=== PATIENT | female | born 1950 | race Caucasian/White ===

== ENCOUNTER 2019-04-04 12:52 | Observation (INO) | payer MEDICARE, OTHER, SELFPAY ==
[2019-04-04] VITALS (7 sets, daily range): BP systolic 133–157; BP diastolic 67–78; PULSE 59–68; RESP 15–18; TEMP 36.8–37.1; O2SAT 65–100; BMI 32.3; BMI 31.0
--- NOTE | 2019-04-04 13:05 | RAD_ITS ---
STUDY: X-RAY CHEST REASON FOR EXAM: Female, 69 years old. Left-sided chest pain. TECHNIQUE: Single AP portable view of the chest. COMPARISON: None. FINDINGS: EKG electrodes are seen. Hyperinflation. The lungs are clear. There is no demonstrated pleural abnormality. Normal size heart. Normal mediastinum and enedina. Normal visualized pulmonary arteries. There is atherosclerotic tortuosity of the aortic arch and descending thoracic aorta. There are diffuse degenerative changes of the visualized thoracic spine. Normal visualized ribs, clavicles, and shoulders. There is no demonstrated abnormality of the visualized soft tissue structures of the upper abdomen. RAD/Chest 1 View (Portable) IMPRESSION: No acute abnormality is seen. Electronically Signed: Ventura Guerrero, at 13:25 EDT , Service support ,
--- NOTE | 2019-04-04 13:05 | EKG12_ITS ---
Test Reason : CP ADMIT Blood Pressure : / mmHG Vent. Rate : 060 BPM Atrial Rate : 060 BPM P-R Int : 158 ms QRS Dur : 082 ms QT Int : 432 ms P-R-T Axes : 045 047 026 degrees QTc Int : 432 ms Normal sinus rhythm Normal ECG Confirmed by MAT MCKEON, CARLOS ([id number]), television news video editor TANO TAVARES ([id number]) on 04/08/2019 10:25:03 AM Referred By: Agueda Ward Confirmed By:CARLOS RIVERO MD
--- NOTE | 2019-04-04 13:05 | ED.DCSUM_ITS ---
History of Present Illness Chief Complaint: Chest Pain Detail of Chief Complaint: Chest pressure with associated symptoms Informant: Patient, Friend Onset: Today - 30 minutes prior to arrival Context: Sudden Onset Timing: Continuous Quality: Pain and pressure Location: Anterior left chest Current Severity: Mild Maximum Severity: Severe Worsened by: Nothing Relieved by: Markedly better after first nitro Associated Symptoms: Nausea, diaphoresis, dyspnea and lightheadedness Narrative: She is a 69-year-old female with history of type 2 diabetes and hypercholesterolemia who presents by ambulance with left anterior pressure sensation with possible radiation associated with nausea, dyspnea, diaphoresis, pallor. She took aspirin prior to paramedics arrival. She was given 1 nitro with marked improvement. She has never had a stress test. There is a strong family history of coronary disease i.e. mother, father and siblings all have had heart attacks. She has never smoked. She denies black or maroon stool. She denies history of hiatal hernia or reflux. She states sometimes it feels like things get stuck. She denies orthopnea or PND. She denies URI symptoms. There is no history of PE or DVT. She is visiting from [facility]. Prior similar symptoms: No Recent Illness/Hospitalization: No - Past Medical History (1) History of type 2 diabetes mellitus Status: Acute (2) History of hypercholesterolemia Status: Acute Past Medical History - Allergies and Home Meds Allergies/Adverse Reactions: Allergies Penicillins [PCN] Allergy (Verified 04/04/19 12:54) Rash Sulfa (Sulfonamide Antibiotics) Allergy (Verified 04/04/19 12:54) Rash Prior records reviewed: No - There are no records for review Surgical History: noncontributory Lives: Alone Smoking Status: Never smoker Alcohol: Occasional Drugs: None Review of Systems General: Denies: Chills, Fever, Sweats Eyes: Reports: Visual changes - bilaterally. Denies: Blurred Vision - bilaterally, Diplopia ENT: Denies: Rhinorrhea, Sore throat Cardiovascular: Reports: Chest pain. Denies: Palpitations Respiratory: Reports: Dyspnea. Denies: Orthopnea, Paroxysmal nocturnal dyspnea Gastrointestinal: Denies: Abdominal pain, Nausea, Vomiting, Diarrhea, Melena, Hematochezia Genitourinary: Denies: Dysuria, Hematuria, Frequency Musculoskeletal: Denies: Myalgias, Arthralgias, Neck pain, Back pain, Swelling, Extremity Pain Skin: Denies: Rash, Wounds Neurological: Denies: Headache, Weakness, Numbness Physical Exam Vital Signs/Narrative: Vital Signs Temp Pulse Resp BP Pulse Ox 04/04/19 12:55 98.7 F 65 17 133/70 H 95 Inital Vital Signs reviewed: Yes General: Well nourished, Well developed, No Acute Distress Head: Normocephalic, Atraumatic Eyes: Perrl, EOMI ENT: Moist mucous membranes, No rhinorrhea Neck: Supple, Nontender Cardiovascular: Regular rate, Regular rhythm, No murmurs Respiratory: No distress, CTA bilaterally, Chest nontender Abdomen: Soft, Nontender, Nondistended, Normal bowel sounds Back: Nontender, Normal Inspection Extremities: Nontender, No edema, - - There is no asymmetry, swelling, discoloration, leg vein distention, palpable cords or tenderness along the distribution of the deep venous system. Skin: Normal color, No rash Neurological: Alert, Oriented x3, Cranial nerves II-XII grossly intact, Normal Strength, Normal Sensation Psychological: Normal affect, Normal Mood Diagnostic/Tx/Re-eval Chest X-Ray - ED: Read by ED Physician, Normal, Heart, Lungs, Mediastinum, Bony Structures, No Acute Disease Impressions Chest X-Ray 04/04/19 13:05 IMPRESSION: No acute abnormality is seen. Electronically Signed: Ventura Guerrero, at 13:25 EDT , Service support , 04/04/19 13:05 Chest 1 View (Portable) [RAD] Stat Laboratory Results 04/04/19 04/04/19 13:40 13:40 WBC 4.7 RBC 4.26 Hgb 13.0 Hct 38.3 MCV 89.9 MCH 30.5 MCHC 33.9 RDW Std Deviation 41.1 RDW Coeff of [place] 12.5 Plt Count 187 MPV 9.3 Immature Gran % (Auto) 0.200 Neut % (Auto) 61.2 Lymph % (Auto) 27.8 [place] % (Auto) 7.0 Eos % (Auto) 3.0 Baso % (Auto) 0.8 Absolute Neuts (auto) 2.9 Absolute Lymphs (auto) 1.31 Nucleated RBC % 0 Sodium 139 Potassium 4.0 Chloride 105 Carbon Dioxide 29.0 Anion Gap 5 BUN 14 Creatinine 0.89 Estim Creat Clear Calc 52.93 Est GFR (MDRD) Af Amer 81 Est GFR (MDRD) Non-Af 67 BUN/Creatinine Ratio 15.8 Glucose 114 H Calcium 9.4 Troponin I < 0.015 Patient's laboratory results and x-ray are unremarkable. Patient's pain has resolved. With strong family history and a heart score of 5 hospitalist has been paged for serial enzymes and provocative testing. - Medical Decision Making With abrupt onset of chest heaviness need to evaluate for cardiac versus noncardiac causes. Since patient has strong family history had significant improvement after one nitro concern this represents cardiac. Will obtain chest x-ray to determine if there are any pulmonary cause of her chest pain. Patient was informed there is significant concern this may represent cardiac cause and that she would require further testing as an inpatient. ED Disposition - Plan for ED Patient: Disposition: Acute Care Hospital [facility] Diagnosis: Chest heaviness
[2019-04-04 13:45] LABS: Absolute Lymphocyte Count 1.31 X10^3/uL (0.83-4.51); Absolute Neutrophil Count 2.9 X10^3/uL (2.0-7.7); Basophil# 0.04 X10^3/uL; Basophil% 0.8 % (0-1); Eosinophil# 0.14 X10^3/uL; Hematocrit 38.3 % (37-47); Lymphocyte # 1.31 X10^3/ul (4.0); Lymphocyte % 27.8 % (19-41); Mean Corp Hgb Conc 33.9 g/dL (32-36); Mean Corpuscular Hgb 30.5 pg (27.0-32.0); Mean Corpuscular Volume 89.9 fL (81-99); Mean Platelet Vol. 9.3 fl (6.2-12.0); Monocyte# 0.33 X10^3/uL; NRBC Flagged by Analyzer 0 % (0-5); Neutrophil # 2.89 X10^3/uL (2.7-7.7); Neutrophil % 61.2 % (47-70); Platelet Count 187 K/mm3 (150-450); RBC Distribution Width CV 12.5 % (11.6-14.6); RBC Distribution Width SD 41.1 fl (35.1-43.9); Red Blood Count 4.26 M/mm3 (4.2-5.4); White Blood Count 4.7 K/mm3 (4.4-11.0)
--- NOTE | 2019-04-04 13:56 | ED.RN ---
pt denies cp or chest pressure. nitro not given.
[2019-04-04 14:03] LABS: Anion Gap 5 (5-15); BUN 14 mg/dL (7-18); BUN/Creat Ratio 15.8 RATIO (10-20); Calcium,Total 9.4 mg/dL (8.5-10.1); Chloride 105 mmol/L (98-107); Creatinine, Serum 0.89 mg/dL (0.55-1.02); EST Glomerular Filtration Rate 67 mL/min (>60); Est Glom Filt Rate - Afr Amer 81 mL/min (>60); Estimated Creatinine Clearance 52.93 ml/min; Glucose 114 mg/dL (74-106); Sodium Level 139 mmol/L (136-145)
--- NOTE | 2019-04-04 16:11 | EKG12_ITS ---
Test Reason : AM EKG Blood Pressure : / mmHG Vent. Rate : 056 BPM Atrial Rate : 056 BPM P-R Int : 162 ms QRS Dur : 084 ms QT Int : 440 ms P-R-T Axes : 055 067 043 degrees QTc Int : 424 ms Sinus bradycardia Otherwise normal ECG Confirmed by MAT MCKEON, CARLOS ([id number]), book editor TANO TAVARES ([id number]) on 04/08/2019 10:24:49 AM Referred By: Agueda Ward Confirmed By:CARLOS RIVERO MD
[2019-04-04 16:31] LABS: Bedside Glucose 105 mg/dL (70-110)
--- NOTE | 2019-04-04 16:35 | PCM.HP.STD ---
<Vargas Nagy - Last Filed: 04/04/19 16:35> Problem List (1) Chest pain Status: Acute (2) Diabetes Status: Chronic Qualifiers: Diabetes mellitus type: type 2 (3) HLD (hyperlipidemia) Status: Chronic History of Present Illness Date of Admission: 04/04/19 Chief Complaint: chest pressure The patient is a 69 year old F with pmhx of DMt2, HTN, HLD, and a strong family hx of coronary dz who presented to the ER with complaints of chest heaviness. This began today at about 1230. She was sitting in a vehicle on the way to lunch when she suddenly had a midsternal and left lower chest heaviness. Associated with this was SOB, lightheadedness, and heavy sweating. She called EMS and was administered nitro which helped her pain. In the ER she had negative troponin, negative CXR, and negative EKG. She continues to have mild midsternal chest heaviness. She has never experienced this before. She has no hx smoking. She occasionally drinks. Her mother had an IN at 62, her father had an IN at 38, and her brother had a 3 vessel CABG at 39. [] Past Medical History Past Medical History (Chronic Problems): Chronic Problems Diabetes (Chronic) HLD (hyperlipidemia) (Chronic) Allergies Penicillins [PCN] Allergy (Verified 04/04/19 12:54) Rash Sulfa (Sulfonamide Antibiotics) Allergy (Verified 04/04/19 12:54) Rash Home Medications: Ambulatory Orders Medication Instructions Recorded Atorvastatin Calcium 40 mg PO QODAY 04/04/19 Metformin HCl 500 mg PO DAILY 04/04/19 Multivitamin [Multivitamins] 1 ea PO DAILY 04/04/19 Surgical History: noncontributory Psychiatric History: No pertinent psych hx LIQU[employer]TIFIER History: No pertinent LIQU[employer]TIF[employer] history Lives: Alone Smoking Status: Never smoker Tobacco Use: Secondhand Alcohol: Occasional Drugs: None - *Family History Maternal History Items: Heart Disease Paternal History Items: Heart Disease Sibling History Items: Heart Disease Review of Systems Constitutional: Denies: Chills, Fever, Weight Change HEENT: Denies: Head Aches, Sinus Congestion, Sinus Drainage Cardiovascular: Denies: Chest Pain, Palpitations Respiratory: Denies: Cough, Shortness of breath at rest, Sputum production Gastrointestinal: Denies: Abdominal Pain, Nausea, Vomiting Genitourinary: Denies: Dysuria Musculoskeletal: Denies: Joint Pain, Joint Tenderness Skin: Denies: Rash, Wounds Neurological: Denies: Numbness, Tingling, Focal weakness Psychiatric: Denies: Anxiety, Depression, Homicidal Ideations, Suicidal Ideations Hematologic/ Lymphatic: Denies: Easy Bruising, Easy Bleeding VTE Information - Inpt Only VTE Present on Admission: No VTE Mechan Device Prophylaxis: None VTE Pharm Prophylaxis ordered?: Yes Patient Problems: Active and Suspected Problems Chest heaviness (Acute) Chest pain (Acute) - Physical Exam General: Alert, Oriented x3, Cooperative HEENT: Atraumatic, PERRLA, EOMI, Normocephalic Neck: Supple, No JVD, Negative Carotid Bruits Lungs: Clear to auscultation, Normal air movement Cardiovascular: Regular rate, No murmurs Abdomen: Bowel Sounds Present, Soft, Non Tender Extremities: No edema, Capillary Refill Less than 3 Seconds Skin: No rashes, No breakdown Musculoskeletal: No Tenderness to Palpation of Joints or Extremities Neurological: Cranial nerves II-XII grossly intact Psych/Mental Status: Normal Affect, Appropriate, Alert and oriented to time, place, person, mood and affect Vital Signs Temp Pulse Resp BP Pulse Ox 98.7 F 60 15 157/78 H 65 04/04/19 12:55 04/04/19 15:17 04/04/19 15:03 04/04/19 15:03 04/04/19 15:03 Oxygen Delivery Method Room Air Weight: 186 lb 8.177 oz Body Mass Index (BMI) 31.0 Laboratory Tests Past 24 Hrs 04/04/19 04/04/19 13:40 13:40 WBC 4.7 RBC 4.26 Hgb 13.0 Hct 38.3 MCV 89.9 MCH 30.5 MCHC 33.9 RDW Std Deviation 41.1 RDW Coeff of [place] 12.5 Plt Count 187 MPV 9.3 Immature Gran % (Auto) 0.200 Neut % (Auto) 61.2 Lymph % (Auto) 27.8 [place] % (Auto) 7.0 Eos % (Auto) 3.0 Baso % (Auto) 0.8 Absolute Neuts (auto) 2.9 Absolute Lymphs (auto) 1.31 Nucleated RBC % 0 Sodium 139 Potassium 4.0 Chloride 105 Carbon Dioxide 29.0 Anion Gap 5 BUN 14 Creatinine 0.89 Estim Creat Clear Calc 52.93 Est GFR (MDRD) Af Amer 81 Est GFR (MDRD) Non-Af 67 BUN/Creatinine Ratio 15.8 Glucose 114 H Calcium 9.4 Troponin I < 0.015 POC Glucose 04/04/19 16:25 POC Glucose 105 Assessment/Plan All Active Problems History of type 2 diabetes mellitus (Acute) History of hypercholesterolemia (Acute) Chest heaviness (Acute) Chest pain (Acute) 1. Chest pain - strong fm hx, ongoing heaviness. Negative trop, EKG, and CXR. Cycle enzymes, maintain on tele, repeat EKG in AM. 2. DMt2 - SSI, hold metformin 3. HTN - trend. 4. HLD - statin. FLP in AM. DVT ppx: lovenox This patient was seen by Vargas Nagy PA-C under the supervision of Dr. Ward <Agueda Ward - Last Filed: 04/04/19 17:11> History of Present Illness The patient is a 69 year old F [] Past Medical History Allergies Penicillins [PCN] Allergy (Verified 04/04/19 12:54) Rash Sulfa (Sulfonamide Antibiotics) Allergy (Verified 04/04/19 12:54) Rash - Physical Exam Vital Signs Temp Pulse Resp BP Pulse Ox 98.4 F 64 18 149/74 H 97 04/04/19 15:45 04/04/19 15:45 04/04/19 15:45 04/04/19 15:45 04/04/19 15:45 Oxygen Delivery Method Room Air Weight: 84.6 kg Body Mass Index (BMI) 31.0 Laboratory Tests Past 24 Hrs 04/04/19 04/04/19 04/04/19 13:40 13:40 16:45 WBC 4.7 RBC 4.26 Hgb 13.0 Hct 38.3 MCV 89.9 MCH 30.5 MCHC 33.9 RDW Std Deviation 41.1 RDW Coeff of [place] 12.5 Plt Count 187 MPV 9.3 Immature Gran % (Auto) 0.200 Neut % (Auto) 61.2 Lymph % (Auto) 27.8 [place] % (Auto) 7.0 Eos % (Auto) 3.0 Baso % (Auto) 0.8 Absolute Neuts (auto) 2.9 Absolute Lymphs (auto) 1.31 Nucleated RBC % 0 Sodium 139 Potassium 4.0 Chloride 105 Carbon Dioxide 29.0 Anion Gap 5 BUN 14 Creatinine 0.89 Estim Creat Clear Calc 52.93 Est GFR (MDRD) Af Amer 81 Est GFR (MDRD) Non-Af 67 BUN/Creatinine Ratio 15.8 Glucose 114 H Calcium 9.4 Troponin I < 0.015 Pending POC Glucose 04/04/19 16:25 POC Glucose 105 Assessment/Plan This patient was seen in conjunction with FARNAZ Morales. I have independently interviewed and examined the patient and reviewed pertinent historical, laboratory, and other data. Please refer to FARNAZ Morales note for his patient's presentation, findings, and recommendations. I have reviewed and his note and concur with his documentation 69-year-old female with past medical history of hypertension, hyperlipidemia, type II DM, with strong family history of cardiovascular events. This resident in [facility] but was in [facility] for some social event. She had traveled over 1 hour with her friends. She developed chest discomfort as before she got to her destination, it was substernal, crushing, associated with diaphoresis and nausea. She attempted to stand up when she arrived and almost passed out. EMS was called and her chest pain went away when she was given nitro. She estimates that she has chest discomfort for about 30 minutes. Her vitals are stable. EKG shows no acute ST changes. Troponins are negative Physical Exam: Gen: Comfortable, not pale, not jaundiced CVS:HS I +II, regular, no murmurs RESP: Clinically clear to auscultation GI: BS present and normal, soft, nontender, no palpable organs EXT:No edema ASSESSMENT: 1. Chest pain, suggestive of possible unstable angina 2. Pre-syncope 3. Hypertension 4. Type II DM 5. Hyperlipidemia Plan: Admit to PCU Monitor on telemetry, trend troponin, Stress echo in a.m. Hold metformin Blood glucose checks with insulin sliding scale Code Visit Inpatient E&M: 81321 Subs Hosp L2
[2019-04-05 00:36] LABS: Bedside Glucose 104 mg/dL (70-110)
[2019-04-05 03:03] VITALS: PULSE 59
[2019-04-05 04:40] VITALS: BP 132/60; PULSE 60; RESP 13; TEMP 36.6; O2SAT 97
[2019-04-05] MEDS: Aspirin E.C. 81 MG Tablet PO (05:38)
--- NOTE | 2019-04-05 05:55 | EKG12_ITS ---
Test Reason : CP Blood Pressure : / mmHG Vent. Rate : 061 BPM Atrial Rate : 061 BPM P-R Int : 160 ms QRS Dur : 084 ms QT Int : 420 ms P-R-T Axes : 044 052 030 degrees QTc Int : 422 ms Normal sinus rhythm Normal ECG Confirmed by MARILYNN MCKEON, KAM ([id number]), material expeditor CONG HARRY ([id number] on 04/12/2019 11:20:34 AM Referred By: Agueda Ward Confirmed By:ZEN SUBRAMANIAN MD
[2019-04-05 06:18] LABS: Absolute Lymphocyte Count 1.73 X10^3/uL (0.83-4.51); Absolute Neutrophil Count 2.4 X10^3/uL (2.0-7.7); Basophil# 0.03 X10^3/uL; Basophil% 0.6 % (0-1); Eosinophil# 0.18 X10^3/uL; Eosinophils% 3.8 % (0-5); Hematocrit 38.9 % (37-47); Hemoglobin 13.1 g/dL (12.0-15.0); Lymphocyte # 1.73 X10^3/ul (4.0); Mean Corp Hgb Conc 33.7 g/dL (32-36); Mean Corpuscular Hgb 30.4 pg (27.0-32.0); Mean Corpuscular Volume 90.3 fL (81-99); Mean Platelet Vol. 9.5 fl (6.2-12.0); Monocyte# 0.35 X10^3/uL; Monocyte% 7.5 % (0-10); NRBC Flagged by Analyzer 0 % (0-5); Neutrophil # 2.38 X10^3/uL (2.7-7.7); Neutrophil % 50.9 % (47-70); Platelet Count 201 K/mm3 (150-450); RBC Distribution Width SD 42.9 fl (35.1-43.9); Red Blood Count 4.31 M/mm3 (4.2-5.4); White Blood Count 4.7 K/mm3 (4.4-11.0)
[2019-04-05 06:26] LABS: Prothrombin Time (Protime)PT. 13.2 SECONDS (11.7-14.9)
[2019-04-05 06:27] LABS: Partial Thromboplast Time 33.5 Seconds (24.1-36.2)
[2019-04-05 06:41] LABS: Anion Gap 5 (5-15); BUN 16 mg/dL (7-18); BUN/Creat Ratio 17.4 RATIO (10-20); Calcium,Total 9.3 mg/dL (8.5-10.1); Chloride 108 mmol/L (98-107); Creatinine, Serum 0.92 mg/dL (0.55-1.02); EST Glomerular Filtration Rate 64 mL/min (>60); Est Glom Filt Rate - Afr Amer 78 mL/min (>60); Glucose 121 mg/dL (74-106); Potassium 4.2 mmol/L (3.5-5.1); Sodium Level 140 mmol/L (136-145)
[2019-04-05 06:50] VITALS: PULSE 61
--- NOTE | 2019-04-05 08:00 | STEWCON_ITS ---
Reason For Study: CHEST PAIN Stress Results Protocol: Stress Echocardiogram Maximum Predicted HR: 150 bpm Target HR: 128 bpm % Maximum Predicted HR: 102 % DurationHeart Rate Stage (mm:ss) (bpm) BP Comment BASELINE 57 132/843 CC DILUTED DEFINITY USED DURING STRESS NIGEL PROTOCOL- STAGE 1 3:00 96 140/78NO SX NIGEL PROTOCOL- STAGE 2 3:00 113 160/68NO SX NIGEL PROTOCOL- STAGE 3 3:00 134 164/68NO SX NIGEL PROTOCOL- STAGE 4 0:35 153 / SL SOB, NO CP RECOVERY 85 128/80 Stress Duration: 9:35 mm:ss Maximum Stress HR: 153 bpm Baseline Echocardiogram Findings The estimated ejection fraction is 65 %. Stress Echo Wall motion Data Resting WM Intermediate WM Stress WM Resting Wall Motion Wall Motion Stress No regional wall motion No regional wall motion abnormalities noted. abnormalities noted. EKG Data The baseline ECG displays normal sinus rhythm. The patient exercised according to the regular Nigel protocol for a total duration of 9:35. The maximum heart rate attained was 153 beats per minute. This was 102% of maximum predicted heart rate. The patient exercised into stage 4 of the Nigel protocol. At peak exercise, upsloping ST changes only were noted, which did not meet the criteria for ischemia. No clinical angina was noted. No arrhythmias noted. Interpretation Summary The estimated ejection fraction is 65 %. Normal, adequate, treadmill echocardiogram. Negative for ischemia by echocardiographic criteria. The patient did have upsloping ST segment depression at peak exercise which resolved by 50 seconds into recovery. No associated wall motion normalities noted. No arrhythmias noted. Appropriate blood pressure response to exercise. Average exercise capacity for age. Final LVEF is 75%. Decreased sensitivity due to poor echo windows requiring Definity agent. No complications. The study was technically difficult. Contrast injection was performed. Ordering Physician: Agueda Ward Referring Physician: Agueda Ward Performed By: Allyssa Fitch, NATALIE, RVT
[2019-04-05 08:13] VITALS: BP 128/78; PULSE 61; RESP 14; TEMP 36.6; O2SAT 96
--- NOTE | 2019-04-05 11:07 | DCINST_ITS ---
- Discharge Diagnoses Current Active Problems: Current Active and Chronic Problems Chest heaviness (Acute) Chest pain (Acute) Diabetes (Chronic) HLD (hyperlipidemia) (Chronic) You will use the following diet at home:: Calorie/Carbohydrate Controlled (specify 1200, 1400, etc) - 2000 lindy. Your food should be the consistency of: Regular Discharge Activity: Return to Normal Activity Weight Bearing Status: Full weight bearing Call your doctor if you observe: Fever of 101 or Higher, Shortness of breath, Dizziness, Fainting spells, Chest pain, Increased palpitations (irregular heartbeat), Uncontrolled pain Allergies/Adverse Reactions: Allergies Penicillins [PCN] Allergy (Verified 04/04/19 12:54) Rash Sulfa (Sulfonamide Antibiotics) Allergy (Verified 04/04/19 12:54) Rash Medications to take at Discharge Atorvastatin Calcium 40 mg PO QODAY 04/04/19 Metformin HCl 500 mg PO DAILY 04/04/19 Multivitamin [Multivitamins] 1 ea PO DAILY 04/04/19 Primary Care Physician: KATHERINE SCANLON [Other] Please follow up with your Primary Care Physician in: 2-4 week. Test Results: Test results from this visit will be discussed in further detail at your follow- up appointment, if applicable.
[2019-04-05 11:16] LABS: Bedside Glucose 125 mg/dL (70-110)
--- NOTE | 2019-04-05 11:19 | DS.PCM_ITS ---
Discharge Date and Diagnosis - Problem List Patient Problems: Active and Suspected Problems Chest heaviness (Acute) Chest pain (Acute) Date of Admission: 04/04/19 Date of Discharge: 04/05/19 - Primary Discharge Diagnosis Active and Suspected Problems Atypical chest pain, ACS ruled out, probably due to GERD. - Secondary Discharge Diagnosis Chronic Problems Diabetes (Chronic) HLD (hyperlipidemia) (Chronic) Hospital Course and Treatment Imaging Results: 04/05/19 08:00 Stress Test Echo W/Contrast [ECHO] Routine Clinical Impression(s) from Imaging Studies Chest X-Ray 04/04/19 13:05 IMPRESSION: No acute abnormality is seen. Electronically Signed: Ventura Guerrero, at 13:25 EDT , Service support , Operations: None Procedures: EKG, - - Stress echocardiogram. Summary of Care Provided: Vision seen and examined on the day of discharge and appeared to be stable to be discharged home. She denies any more chest pain or heaviness. Denies any more dizziness or lightheadedness. Her vital signs have been stable. The patient is a 69 year old F admitted because of chest pain for evaluation. Patient had episode of chest pain while she was sitting, was dizzy and lasted for couple of minutes. It was atypical. EKG revealed normal sinus rhythm without evidence of acute ischemic changes. Troponin was negative x3. Chest x- ray showed no acute findings. Routine blood work was unremarkable. Overnight, youth nutritional monitor revealed no evidence of cardiac arrhythmias or acute ischemic changes. Patient underwent stress echocardiogram that was normal, adequate treadmill echocardiogram, negative for ischemia by echocardiographic criteria, no cardiac arrhythmias, ejection fraction was 65%. Acute coronary syndrome ruled out. Patient mentioned that she has been having issues with GERD and she has been taking PPI. Patient discharged home in a stable condition, continued on her previous home medications without any changes including omeprazole that she has been taking at home, recommended follow-up with PCP in 2 to 4 weeks. Patient Problems: Active and Suspected Problems Chest heaviness (Acute) Chest pain (Acute) - Physical Exam General: Alert, Oriented x3, Cooperative, No apparent distress HEENT: Atraumatic, PERRLA, EOMI, Normocephalic Oral: Moist Mucosa, No Gingival or Mucosal Lesions/ Ulcerations Neck: Supple, No JVD, Negative Carotid Bruits, Trachea Midline, Thyroid Normal Size and Texture Lungs: Clear to auscultation, Normal air movement, No rhonchi, No wheeze, No rales Cardiovascular: Regular rate, Regular Rhythm, Normal S1, Normal S2, PMI Normal Abdomen: Bowel Sounds Present, Soft, Non Tender, Non-Distended, No Hepato- splenomegaly Extremities: No clubbing, No cyanosis, No edema Skin: No rashes, No breakdown Lymphatic: No Cervical, Supraclavicular, or Inguinal Adenopathy Neurological: Cranial nerves II-XII grossly intact, Neuro grossly intact Psych/Mental Status: Normal Affect, Appropriate Vital Signs Temp Pulse Resp BP Pulse Ox 97.8 F 61 14 128/78 H 96 04/05/19 08:13 04/05/19 08:13 04/05/19 08:13 04/05/19 08:13 04/05/19 08:13 Oxygen Delivery Method Room Air Weight: 184 lb 4.903 oz Body Mass Index (BMI) 31.0 Intake and Output for Last 24 Hours 04/03/19 04/04/19 04/05/19 23:59 23:59 23:59 Intake Total 720 / 720 Balance 720 / 720 Laboratory Tests Past 24 Hrs 04/04/19 04/04/19 04/04/19 13:40 13:40 16:45 WBC 4.7 RBC 4.26 Hgb 13.0 Hct 38.3 MCV 89.9 MCH 30.5 MCHC 33.9 RDW Std Deviation 41.1 RDW Coeff of [place] 12.5 Plt Count 187 MPV 9.3 Immature Gran % (Auto) 0.200 Neut % (Auto) 61.2 Lymph % (Auto) 27.8 [place] % (Auto) 7.0 Eos % (Auto) 3.0 Baso % (Auto) 0.8 Absolute Neuts (auto) 2.9 Absolute Lymphs (auto) 1.31 Nucleated RBC % 0 PT INR APTT Sodium 139 Potassium 4.0 Chloride 105 Carbon Dioxide 29.0 Anion Gap 5 BUN 14 Creatinine 0.89 Estim Creat Clear Calc 52.93 Est GFR (MDRD) Af Amer 81 Est GFR (MDRD) Non-Af 67 BUN/Creatinine Ratio 15.8 Glucose 114 H Calcium 9.4 Troponin I < 0.015 < 0.015 10/17/19 10/18/19 10/18/19 19:44 05:31 05:31 WBC 4.7 RBC 4.31 Hgb 13.1 Hct 38.9 MCV 90.3 MCH 30.4 MCHC 33.7 RDW Std Deviation 42.9 RDW Coeff of [place] 13.0 Plt Count 201 MPV 9.5 Immature Gran % (Auto) 0.200 Neut % (Auto) 50.9 Lymph % (Auto) 37.0 [place] % (Auto) 7.5 Eos % (Auto) 3.8 Baso % (Auto) 0.6 Absolute Neuts (auto) 2.4 Absolute Lymphs (auto) 1.73 Nucleated RBC % 0 PT 13.2 INR 1.0 APTT 33.5 Sodium Potassium Chloride Carbon Dioxide Anion Gap BUN Creatinine Estim Creat Clear Calc Est GFR (MDRD) Af Amer Est GFR (MDRD) Non-Af BUN/Creatinine Ratio Glucose Calcium Troponin I < 0.015 04/05/19 05:31 WBC RBC Hgb Hct MCV MCH MCHC RDW Std Deviation RDW Coeff of [place] Plt Count MPV Immature Gran % (Auto) Neut % (Auto) Lymph % (Auto) [place] % (Auto) Eos % (Auto) Baso % (Auto) Absolute Neuts (auto) Absolute Lymphs (auto) Nucleated RBC % PT INR APTT Sodium 140 Potassium 4.2 Chloride 108 H Carbon Dioxide 27.0 Anion Gap 5 BUN 16 Creatinine 0.92 Estim Creat Clear Calc 51.20 Est GFR (MDRD) Af Amer 78 Est GFR (MDRD) Non-Af 64 BUN/Creatinine Ratio 17.4 Glucose 121 H Calcium 9.3 Troponin I POC Glucose 04/05/19 04/04/19 04/04/19 06:45 22:31 16:25 POC Glucose 125 H 104 105 Discharge Activity: Return to Normal Activity Weight Bearing Status: Full weight bearing Call your doctor if you observe: Fever of 101 or Higher, Shortness of breath, Dizziness, Fainting spells, Chest pain, Increased palpitations (irregular heartbeat), Uncontrolled pain Home Medications: Medications to take at Discharge Atorvastatin Calcium 40 mg PO QODAY 04/04/19 Metformin HCl 500 mg PO DAILY 04/04/19 Multivitamin [Multivitamins] 1 ea PO DAILY 04/04/19 Primary Care Physician: KATHERINE SCANLON [Other] Please follow up with your Primary Care Physician in: 2-4 week. Disposition: Home Minutes spent on discharge:: 25 Patient Condition:: Stable Medical Necessity - Tobacco Use Smoking Status: Never smoker Tobacco Use: Secondhand Meaningful Use Info Meaningful Use Diagnoses (Choose all that apply): None applicable Code Visit OBSV E&M: 39224 Observation care discharge
[2019-04-05 11:25] LABS: Bedside Glucose 120 mg/dL (70-110)
--- NOTE | 2019-04-05 11:51 | PHA.DC.MR ---
Pharmacy Service has performed discharge medication reconciliation for this patient. Home Medications Atorvastatin Calcium 40 mg PO QODAY 04/04/19 Metformin HCl 500 mg PO DAILY 04/04/19 Multivitamin [Multivitamins] 1 ea PO DAILY 04/04/19 The patient's discharge medication list was reviewed for discrepancies and discrepancies were resolved.
== END 2019-04-05 11:08 | disposition home or self-care (01) ==
LOC: ED 14:49 → PCU 15:07
PROVIDERS: Family Medicine; Admitting Provider Internal Medicine; Emergency Provider Emergency Medicine; Referring Provider Internal Medicine; Visit Provider Hospitalist
DX: R07.89 Other chest pain (principal); R06.00 Dyspnea, unspecified; I10 Essential (primary) hypertension; R55 Syncope and collapse; R42 Dizziness and giddiness; E78.5 Hyperlipidemia, unspecified; K21.9 Gastro-esophageal reflux disease without esophagitis; E11.9 Type 2 diabetes mellitus without complications; R11.0 Nausea; Z82.49 Family history of ischemic heart disease and other diseases of the circulatory system; Z79.899 Other long term (current) drug therapy; Z79.84 Long term (current) use of oral hypoglycemic drugs
CPT/HCPCS: 36415; 71045; 80048; 82962; 84484; 85025; 85610; 85730; 93005; 93017; 93350; 99218; 99285; Q9957; A4216; C8928; G0378